=== PATIENT | female | born 1965 | race Two or more races ===

== ENCOUNTER 2017-11-30 15:12 | Outpatient (CLI) | payer OTHER | END 2017-11-30 15:27 | disposition home or self-care (01) | LOC: MAMO-SONO 15:12 | DX: Z12.31 Encounter for screening mammogram for malignant neoplasm of breast (principal); N60.11 Diffuse cystic mastopathy of right breast; N60.12 Diffuse cystic mastopathy of left breast ==

== ENCOUNTER 2019-05-12 10:51 | Outpatient (CLI) | payer OTHER | END 2019-05-12 10:57 | disposition home or self-care (01) | LOC: MAMO-SONO 10:51 | DX: N60.11 Diffuse cystic mastopathy of right breast (principal); N60.12 Diffuse cystic mastopathy of left breast; Z12.31 Encounter for screening mammogram for malignant neoplasm of breast ==

== ENCOUNTER 2021-05-28 08:00 | Outpatient (CLI) | payer OTHER | END 2021-05-28 08:30 | disposition home or self-care (01) | LOC: PPH VACUNA 08:00 | PROVIDERS: ATTEND Emergency Medicine Pediatric Emergency Medicine | DX: Z23 Encounter for immunization (principal) ==

== ENCOUNTER 2021-09-29 14:37 | Outpatient (CLI) | payer OTHER | END 2021-09-29 14:45 | disposition home or self-care (01) | LOC: MAMO-SONO 14:37 | PROVIDERS: ATTEND Specialist | DX: N60.11 Diffuse cystic mastopathy of right breast (principal); N60.12 Diffuse cystic mastopathy of left breast ==

== ENCOUNTER 2022-05-15 14:10 | Outpatient (CLI) | payer OTHER | END 2022-05-15 14:15 | disposition home or self-care (01) | LOC: PPH VACUNA 14:10 | PROVIDERS: ATTEND Emergency Medicine Pediatric Emergency Medicine | DX: Z23 Encounter for immunization (principal) ==

== ENCOUNTER → 2023-09-21 | Outpatient (CLI) | payer OTHER | END | disposition home or self-care (01) | LOC: RAD 14:59 | PROVIDERS: ATTEND Physical Medicine & Rehabilitation | DX: M54.50 Low back pain, unspecified (principal); M54.16 Radiculopathy, lumbar region ==

== ENCOUNTER 2025-02-05 11:11 | Outpatient (CLI) | payer OTHER | END 2025-02-05 11:23 | disposition home or self-care (01) | LOC: RAD 11:11 | PROVIDERS: ATTEND Pediatrics | DX: S60.211A Contusion of right wrist, initial encounter (principal) ==

== ENCOUNTER 2025-02-07 12:09 | Outpatient (CLI) | payer OTHER | END 2025-02-07 12:19 | disposition home or self-care (01) | LOC: SONOGRAMA 12:09 | PROVIDERS: ATTEND Physical Medicine & Rehabilitation | DX: M25.562 Pain in left knee (principal) ==

== ENCOUNTER 2025-03-07 09:56 | Outpatient (CLI) | payer OTHER | END 2025-03-07 10:04 | disposition home or self-care (01) | LOC: RAD 09:56 | PROVIDERS: ATTEND Pediatrics | DX: S83.92XA Sprain of unspecified site of left knee, initial encounter (principal) ==